=== PATIENT | male | born 1980 | race Caucasian/White ===

== ENCOUNTER 2016-06-28 23:09 | Emergency (ER) | payer SELFPAY ==
[2016-06-28 23:36] VITALS: BP 130/78
[2016-06-29] MEDS ORDERED: SULFAMETHOXAZOLE/TRIMETHOPRIM 800-160 MG TABLET PO ONE (01:25)
--- NOTE | 2016-06-29 01:26 | ER Document Report ---
ED Skin Rash/Insect Bite/Abscs - General Chief Complaint: Skin Problem Stated Complaint: ABSCESS Time seen by provider: 01:25 Information source: Patient TRAVEL OUTSIDE OF THE [place] IN LAST 30 DAYS: No - HPI Patient complains to provider of: Tender/swollen area, Possible insect bite Onset: This morning Onset/Duration: Gradual Quality of pain: Achy Severity: Mild Pain Level: 2 Skin Character: Erythema, Swelling, Tenderness Skin Temperature: Warm Quality of rash: Painful Identify cause: No Exacerbated by: Denies Relieved by: Denies Similar symptoms previously: No Recently seen / treated by doctor: No Notes: Patient is a 35-year-old male presenting to the emergency room complaining of tender and erythematous swelling to the right proximal forearm that he first noticed this morning, he has 3 spots on the arm that appear to be insect bites but is unsure what may have bitten him, he denies any itchiness, no drainage, no fevers, no symptoms like this in the past Past Medical History - General Information source: Patient - Social History Smoking Status: Current Every Day Smoker Family History: Reviewed & Not Pertinent Renal/ Medical History: Denies: Hx Peritoneal Dialysis Surgical Hx: Negative - Immunizations Hx Diphtheria, Pertussis, Tetanus Vaccination: Yes Review of Systems - Review of Systems Constitutional: No symptoms reported EENT: No symptoms reported Cardiovascular: No symptoms reported Respiratory: No symptoms reported Gastrointestinal: No symptoms reported Genitourinary: No symptoms reported Male Genitourinary: No symptoms reported Musculoskeletal: No symptoms reported Skin: See HPI Hematologic/Lymphatic: No symptoms reported Neurological/Psychological: No symptoms reported -: Yes All other systems reviewed and negative Physical Exam - Vital signs Vitals: Temp Pulse Resp BP Pulse Ox 98.2 F 75 16 130/78 H 98 06/28/16 23:33 06/28/16 23:33 06/28/16 23:33 06/28/16 23:33 06/28/16 23:33 Interpretation: Normal - Notes Notes: - General General appearance: Appears well, Alert In distress: None - HEENT Head: Normocephalic, Atraumatic Eyes: Normal Conjunctiva: Normal Extraocular movements intact: Yes Eyelashes: Normal Pupils: PERRL - Respiratory Respiratory status: No respiratory distress - Cardiovascular Rhythm: Regular - Abdominal Inspection: Normal - Back Back: Normal - Extremities General upper extremity: Knee dorsal surface of the proximal right forearm there are 3 scabbed lesions consistent with insect bites, and an area of a proximally 4-5 cm of increased warmth, erythema and tenderness, there is no fluctuance, distal sensation and motor is intact with 2+ radial pulses and brisk capillary refill General lower extremity: Normal inspection - Neurological Neuro grossly intact: Yes Orientation: AAOx4 [place]illo Coma Scale Eye Opening: Spontaneous [place] Coma Scale Verbal: Oriented [place] Coma Scale Motor: Obeys Commands [place] Coma Scale Total: 15 - Psychological Associated symptoms: Normal affect, Normal mood - Skin Skin Temperature: Warm Skin Moisture: Dry Skin Color: Normal Course - Re-evaluation Re-evalutation: 06/29/16 05:09 Patient's findings are consistent with cellulitis, he was started on antibiotics and advised to follow-up with her primary care provider or return if symptoms worsen, patient acknowledges understanding and agreement with this plan - Vital Signs Vital signs: Temp Pulse Resp BP Pulse Ox 98.2 F 75 16 130/78 H 98 06/28/16 23:33 06/28/16 23:33 06/28/16 23:33 06/28/16 23:33 06/28/16 23:33 Discharge - Discharge Clinical Impression: Cellulitis Qualifiers: Site of cellulitis: extremity Site of cellulitis of extremity: upper extremity Laterality: right Qualified Code(s): L03.113 - Cellulitis of right upper limb Condition: Stable Disposition: HOME, SELF-CARE Instructions: Cellulitis ([facility]), Insect Bites ([facility]) Additional Instructions: Follow up with your primary care provider in one to 2 days. Return to the emergency room immediately if symptoms worsen or any additional concerns. Prescriptions: Sulfamethoxazole/Trimethoprim [Bactrim Ds Tablet] 1 each PO BID #20 tablet
== END 2016-06-29 01:40 | disposition home or self-care (01) ==
LOC: ER 23:09
DX: L03.113 Cellulitis of right upper limb (principal); F17.200 Nicotine dependence, unspecified, uncomplicated
CPT/HCPCS: 99282